=== PATIENT | female | born 1985 | race African-American/Black ===

== ENCOUNTER 2019-04-06 21:11 | Emergency (ER) | payer OTHER ==
[~2019-04-06] VITALS: Ht 157.5 cm; Wt 124.7 kg
--- NOTE | 2019-04-06 21:15 | PHYS DOC ---
Adult General Chief Complaint Chief Complaint: ".. My whole face is swollen here on the right.. It probably from the two bad teeth in the back..." (32, 31) HPI HPI Patient is a 33 year old female who presents with above hx and complaints Rt. lower molar decay and pain. Now has entire Rt. side of face edema and pain. Patient has adenopathy at angle of mandible on right. Patient has no trismus.. Patient denies any history immunosuppression. No history of travel or specific ill contacts. Molar areas of 32 and 31 are rotted into the gum. Does have other areas of dental decay . Review of Systems Review of Systems Constitutional: Denies fever or chills [] Eyes: Denies change in visual acuity, redness, or eye pain [] HENT: Denies nasal congestion or sore throat [] The pt. complaints of right facial edema and dental pain Respiratory: Denies cough or shortness of breath [] Cardiovascular: No additional information not addressed in HPI [] GI: Denies abdominal pain, nausea, vomiting, bloody stools or diarrhea [] : Denies dysuria or hematuria [] Musculoskeletal: Denies back pain or joint pain [] Integument: Denies rash or skin lesions [] Neurologic: Denies headache, focal weakness or sensory changes [] Endocrine: Denies polyuria or polydipsia [] All other systems were reviewed and found to be within normal limits, except as documented in this note. Family History Family History Noncontributory Current Medications Current Medications See nursing for home meds Allergies Allergies No known drug allergies Physical Exam Physical Exam Constitutional: Alert acute distress, non-toxic appearance. [] HENT: Normocephalic, atraumatic, bilateral external ears normal, oropharynx moist, no oral exudates, nose normal. Multiple areas of dental decay. Entire right side of face swollen and cellulitic in appearance. Molars 32 and 31 decay into gum line. There is no pointing abscess. Eyes: PERRLA, EOMI, conjunctiva normal, no discharge. [] Neck: Normal range of motion, no tenderness, supple, no stridor. [] Cardiovascular:Heart rate regular rhythm, no murmur [] Lungs & Thorax: Bilateral breath sounds equal at apex auscultation [] Abdomen: Bowel sounds normal, soft, no tenderness, no masses, no pulsatile masses. Obese. Skin: Warm, dry, no erythema, no rash.. Except findings a right facial cellulitis Back: No tenderness, no CVA tenderness. [] Extremities: No tenderness, no cyanosis, no clubbing, ROM intact, no edema. [] Neurologic: Alert and oriented X 3, normal motor function, normal sensory function, no focal deficits noted. [] Psychologic: Affect anxious, judgement normal, mood normal. [] EKG EKG [] Radiology/Procedures Radiology/Procedures [] Course & Med Decision Making Course & Med Decision Making Pertinent Labs and Imaging studies reviewed. (See chart for details) Patient must follow-up with dentist or oral surgeon. Will need extraction of teeth 32 and 31. Patient advises nothing we do will fix her underlying problems must follow-up with Dentist. Will start patient on Keflex 500 mg 3 times a day. Patient take Tylenol or Ibuprofen for pain.. Patient follow-up primary care. Patient recommended follow-up at dental school if unable to get a Dentist locally. MUST FOLLOW UP. [] Dragon Disclaimer Dragon Disclaimer This electronic medical record was generated, in whole or in part, using a voice recognition dictation system. Departure Departure: Disposition: HOME/RESIDENCE PRIOR TO ADM Condition: STABLE Referrals: PCP,NO (PCP) Scripts Cephalexin (KEFLEX) 500 Mg Capsule 500 MG PO TID for CELLULITIS AND DENTAL DECAY for 10 Days, BOTTLE Prov: DANA MAYORGA MD 04/06/19 [place] Disclaimer This chart was dictated in whole or in part using Voice Recognition software in a busy, high-work load, and often noisy Emergency Department environment. It may contain unintended and wholly unrecognized errors or omissions. DANA MAYORGA MD Apr 06, 2019 21:15
[2019-04-06 21:34] VITALS: BP 148/87
[2019-04-06] MEDS ORDERED: CEPH-264 PO (22:26)
[2019-04-06] MEDS ORDERED: cefTRIAXone IM 1 GM VIAL IM ONE (22:30)
== END 2019-04-06 22:52 | disposition home or self-care (01) ==
LOC: ER 21:11
DX: K02.9 Dental caries, unspecified (principal); R60.0 Localized edema
CPT/HCPCS: 96372; 99283; J0696; 99284